=== PATIENT | male | born 1970 | race Caucasian/White ===

== ENCOUNTER → 2020-10-29 | Day surgery (SDC) | payer MEDICARE ==
[~2020-10-29] MED LIST: ACETAMINOPHEN 500 MG TABLET PO ONE; BUPIVACAINE-EPI 0.25%-1:200000 MPF 30 ML VIAL. ONE; DEXAMETHASONE SOD PHOS 20 MG/5 ML VIAL. ONE; DOCU250C8 PO; IPRATRPIUM/ALBUTEROL 0.5/2.5MG 3 ML NEBU. NEB PRN; IV RINGERS SOLUTION,LACTATED 1,000 ML IV SCH; KETOROLAC 30 MG/ML VIAL. ONE; LIDOCAINE 2% PF 5 ML VIAL. ONE; MELA10TA7 PO; MIDAZOLAM HCL PF 2 MG/2 ML VIAL. IV ONE; MIDAZOLAM HCL PF 2 MG/2 ML VIAL. ONE; NEOMY/BACITR/POLYMYXIN OINT PACKET. TP ONE; OMEP20CA16 PO; ONDANSETRON PF 4 MG/2 ML VIAL. IV PRN; ONDANSETRON PF 4 MG/2 ML VIAL. ONE; PROPOFOL 10,000 MCG/ML (20ML) VIAL IV ONE; SEVOFLURANE 31 TO 60 MINUTES. IH ONE; ZOLP10TA PO; ceFAZolin SODIUM 2 GM in IV DEXTROSE 5% 50 ML IV ONE
--- NOTE | 2020-10-29 10:13 | PDOC4 ---
Operative Report DATE October 292020 at 1010 Preop Diagnosis Internal and external hemorrhoids Post-op Diagnosis Same Operation Performed Hemorrhoidectomy Patient is 50-year-old male with grade 4 prolapsed internal hemorrhoids with bleeding. Procedure of hemorrhoidectomy was explained to the patient detail risk benefits were also discussed including bleeding infection alternatives to this procedure also discussed with the patient who seemed to understand and gave both verbal and written consent to have the procedure performed. Patient was taken to the operating room placed in supine position general anesthesia was initiated once patient was sleeping intubated was placed in the lithotomy positioning and his perineum was prepped and draped usual sterile fashion was Betadine scrub and solution. Area around the anus with the hemorrhoids was injected with quarter percent Marcaine with epinephrine hemorrhoids were grasped with a Allis clamp and using the harmonic scalpel were excised 3 large piles were excised. The area was then dressed with antibiotic ointment ABD and briefs. Patient was placed back in the supine positioning awakened and extubated in the operating room taken to recovery in stable condition all sponge instrument needle counts listed as correct estimated blood loss 20 mL. Surgeon Sunny ANESTHESIA PROPOSED: GENERAL, LOCAL Blood Loss 10 mL Specimen Hemorrhoids Complications None SAIGE AYOUB MD October 29, 2020 10:13
--- NOTE | 2020-10-29 10:14 | DISCH ---
DISCHARGE INSTRUCTIONS-DC Condition on Discharge Condition on Discharge: Stable Activity after Discharge Activity Instructions for Disc: Avoid exertion Diet after Discharge Diet after Discharge: Regular Wound/Incision Care Other wound/incision instructi: Margo showsusan 24 hours Contacting the DRReno after DC Call your doctor for: If your condition worsens Follow-Up Follow up with: Sunny in 2 weeks SAIGE AYOUB MD October 29, 2020 10:14
[2020-10-29 11:09] VITALS: BP 159/112
== END | disposition home or self-care (01) ==
LOC: SURG 08:02 → EDUNIT# 10:30
PROVIDERS: ATTEND Surgery
DX: K64.8 Other hemorrhoids (principal); K64.4 Residual hemorrhoidal skin tags; Z72.89 Other problems related to lifestyle; Z20.822 Contact with and (suspected) exposure to COVID-19; Z79.899 Other long term (current) drug therapy
CPT/HCPCS: 46255; 87426; C9803; J0696; J1100; J1885; J2001; J2250; J2405; J2704; J3010; J3490; U0003